=== PATIENT | male | born 1985 | race Caucasian/White ===

== ENCOUNTER 2017-03-09 18:05 | Emergency (ER) | payer OTHER | END 2017-03-09 21:20 | disposition home or self-care (01) | LOC: FER 18:05 | DX: T65.91XA Toxic effect of unspecified substance, accidental (unintentional), initial encounter (principal); L25.3 Unspecified contact dermatitis due to other chemical products; J45.909 Unspecified asthma, uncomplicated; Z88.8 Allergy status to other drugs, medicaments and biological substances | CPT/HCPCS: J2930 ==